=== PATIENT | female | born 1940 | race Caucasian/White ===

== ENCOUNTER 2018-03-17 21:31 | Emergency (ER) | payer OTHER ==
--- NOTE | 2018-03-17 22:35 | EDPHYS ---
Physician Documentation [facility] Name: Mary Polo Age: 77 yrs Sex: Female : 1940 Arrival Date: 03/17/2018 Time: 21:32 Bed 6 Private MD: Austyn Robert ED Physician Sreekanth Diego HPI: 03/17 22:25 This 77 yrs old Female presents to ER via Ambulatory with complaints of Arm ps1 Problem, Insect Bite. 22:25 patient was stung by wasp x1 day prior concerned for swelling and redness. No fever. ps1 Redness and swelling localized to posterior aspect of right upper arm. Pain moderate. . Historical: - Allergies: 21:59 PENICILLINS; aj - PMHx: 21:59 Atrial Fib; Hypertension; aj - Immunization history:: Adult Immunizations up to date. - Social history:: Smoking status: Patient/guardian denies using tobacco. - Ebola Screening: : Patient negative for fever greater than or equal to 101.5 degrees Fahrenheit, and additional compatible Ebola Virus Disease symptoms Patient denies exposure to infectious person Patient denies travel to an Ebola-affected area in the 21 days before illness onset No symptoms or risks identified at this time. ROS: 22:25 Constitutional: Negative for fever, chills, and weight loss, Eyes: Negative for injury, ps1 pain, redness, and discharge, ENT: Negative for injury, pain, and discharge, Cardiovascular: Negative for chest pain, palpitations, and edema, Respiratory: Negative for shortness of breath, cough, wheezing, and pleuritic chest pain, Abdomen/GI: Negative for abdominal pain, nausea, vomiting, diarrhea, and constipation, MS/Extremity: Negative for injury and deformity, Neuro: Negative for headache, weakness, numbness, tingling, and seizure, Psych: Negative for depression, anxiety, suicide ideation, homicidal ideation, and hallucinations. 22:25 Skin: Positive for rash. Exam: 22:25 Constitutional: This is a well developed, well nourished patient who is awake, alert, ps1 and in no acute distress. Head/Face: Normocephalic, atraumatic. Eyes: Pupils equal round and reactive to light, extra-ocular motions intact. Lids and lashes normal. Conjunctiva and sclera are non-icteric and not injected. Chest/axilla: Normal chest wall appearance and motion. Nontender with no deformity. No lesions are appreciated. Cardiovascular: Regular rate and rhythm. No gallops, murmurs, or rubs. Normal PMI, no JVD. No pulse deficits. Respiratory: Lungs have equal breath sounds bilaterally, clear to auscultation and percussion. No rales, rhonchi or wheezes noted. No increased work of breathing, no retractions or nasal flaring. Abdomen/GI: Soft, non-tender, with normal bowel sounds. No distension or tympany. No guarding or rebound. No evidence of tenderness throughout. MS/ Extremity: Pulses equal, no cyanosis. Neurovascular intact. Full, normal range of motion. Neuro: Awake and alert, GCS 15, oriented to person, place, time, and situation. Cranial nerves II-XII grossly intact. Sensory grossly intact. 22:25 Skin: Appearance: normal except for affected area, Insect bite. Patient has sterile pustule with surrounding edema and minimal erythema. . Vital Signs: 21:59 BP 152 / 62; Pulse 71; Resp 16; Temp 97.8; Pulse Ox 93% on R/A; Weight 86.18 kg; Height aj 5 ft. 5 in. (165.10 cm); 22:46 BP 132 / 93; Pulse 72; Resp 18; Pulse Ox 94% on R/A; tl2 21:59 Body Mass Index 31.62 (86.18 kg, 165.10 cm) aj MDM: 22:12 Patient medically screened. ps1 22:25 Data reviewed: vital signs, nurses notes, and as a result, I will discharge patient, ps1 administer antihistamines, benadryl, administer steroids, Decadron. Counseling: I had a detailed discussion with the patient and/or guardian regarding: the historical points, exam findings, and any diagnostic results supporting the discharge/admit diagnosis, to return to the emergency department if symptoms worsen or persist or if there are any questions or concerns that arise at home. Administered Medications: 22:45 Drug: Decadron 10 mg Route: PO; tl2 22:47 Follow up: Response: No adverse reaction; Medication administered at discharge. tl2 22:45 Drug: Benadryl 25 mg Route: PO; tl2 22:48 Follow up: Response: No adverse reaction; Medication administered at discharge. tl2 22:45 Drug: Motrin 400 mg Route: PO; tl2 22:48 Follow up: Response: No adverse reaction; Medication administered at discharge. tl2 Disposition: 03/17/18 22:33 Discharged to Home. Impression: Toxic effect of venom of wasps, accidental (unintentional). - Condition is Stable. - Discharge Instructions: Bee, Wasp, or Hornet Sting, Adult. - Medication Reconciliation Form, Thank You Letter, Antibiotic Education, Prescription Opioid Use form. - Follow up: Austyn Robert MD; When: As needed; Reason: Recheck today's complaints, Continuance of care, Re-evaluation by your physician. Follow up: Emergency Department; When: As needed; Reason: Worsening of condition. - Problem is new. - Symptoms are unchanged. Signatures: Arlyn Jackson RN RN aj Lala Maurice RN RN tl2 Sreekanth Diego MD MD ps1 Corrections: (The following items were deleted from the chart) 22:48 22:33 03/17/2018 22:33 Discharged to Home. Impression: Toxic effect of venom of wasps, tl2 accidental (unintentional). Condition is Stable. Forms are Medication Reconciliation Form, Thank You Letter, Antibiotic Education, Prescription Opioid Use. Follow up: Austyn Robert; When: As needed; Reason: Recheck today's complaints, Continuance of care, Re-evaluation by your physician. Follow up: Emergency Department; When: As needed; Reason: Worsening of condition. Problem is new. Symptoms are unchanged. ps1
--- NOTE | 2018-03-17 22:35 | ER ---
Nurse's Notes [facility] Name: Mary Polo Age: 77 yrs Sex: Female : 1940 Arrival Date: 03/17/2018 Time: 21:32 Bed 6 Private MD: Austyn Robert Diagnosis: Toxic effect of venom of wasps, accidental (unintentional) Presentation: 03/17 21:57 Presenting complaint: Patient states: Redness and inflammation to posterior right upper aj arm for 3 days after wasp sting 3 days ago. Transition of care: patient was not received from another setting of care. Onset of symptoms was March 14, 2018. Risk Assessment: Do you want to hurt yourself or someone else? Patient reports no desire to harm self or others. Initial Sepsis Screen: Does the patient meet any 2 criteria? No. Patient's initial sepsis screen is negative. Does the patient have a suspected source of infection? No. Patient's initial sepsis screen is negative. Care prior to arrival: None. 21:57 Method Of Arrival: Ambulatory 21:57 Acuity: ARNOLD 3 Triage Assessment: 21:59 Bite description: bite sustained to right tricep by a hornet, animal information: vaccination(s) is not applicable. General: Appears in no apparent distress. comfortable, Behavior is calm, cooperative, appropriate for age. Pain: Complains of pain in right tricep. Neuro: Level of Consciousness is awake, alert, obeys commands, Oriented to person, place, time, situation, Appropriate for age. Respiratory: Airway is patent Respiratory effort is even, unlabored, Respiratory pattern is regular, symmetrical. Derm: Skin is intact, is healthy with good turgor, Skin is pink, warm \T\ dry. normal. Historical: - Allergies: 21:59 PENICILLINS; aj - PMHx: 21:59 Atrial Fib; Hypertension; aj - Immunization history:: Adult Immunizations up to date. - Social history:: Smoking status: Patient/guardian denies using tobacco. - Ebola Screening: : Patient negative for fever greater than or equal to 101.5 degrees Fahrenheit, and additional compatible Ebola Virus Disease symptoms Patient denies exposure to infectious person Patient denies travel to an Ebola-affected area in the 21 days before illness onset No symptoms or risks identified at this time. Screenin:14 Abuse screen: Denies threats or abuse. Nutritional screening: No deficits noted. ea Tuberculosis screening: No symptoms or risk factors identified. Fall Risk None identified. Assessment: 22:11 General: Appears in no apparent distress. Behavior is calm, cooperative, appropriate ea for age. Pain: Complains of pain in right tricep, left ankle Pain currently is 5 out of 10 on a pain scale. Quality of pain is described as burning, aching, Pain began 1 day ago. Neuro: Level of Consciousness is awake, alert, obeys commands, Oriented to person, place, time, situation. Cardiovascular: Heart tones S1 S2 present Patient's skin is warm and dry. Respiratory: Airway is patent Respiratory effort is even, unlabored, Respiratory pattern is regular, symmetrical. GI: No signs and/or symptoms were reported involving the gastrointestinal system. : No signs and/or symptoms were reported regarding the genitourinary system. EENT: No signs and/or symptoms were reported regarding the EENT system. Derm: reddened area to right Tricept pt reports she was stung by a hornet, pustule noted to area. 22:46 Reassessment: Patient appears in no apparent distress at this time. Patient and/or tl2 family updated on plan of care and expected duration. Pain level reassessed. Patient is alert, oriented x 3, equal unlabored respirations, skin warm/dry/pink. Pt verbalized understanding of discharge instructions, need for follow up and medication usage. Vital Signs: 21:59 BP 152 / 62; Pulse 71; Resp 16; Temp 97.8; Pulse Ox 93% on R/A; Weight 86.18 kg; Height aj 5 ft. 5 in. (165.10 cm); 22:46 BP 132 / 93; Pulse 72; Resp 18; Pulse Ox 94% on R/A; tl2 21:59 Body Mass Index 31.62 (86.18 kg, 165.10 cm) aj ED Course: 21:32 Patient arrived in ED. am2 21:32 Austyn Robert MD is Private Physician. am2 21:58 Triage completed. aj 21:59 Arm band placed on right wrist. Patient placed in an exam room. aj 22:03 Jessica De La Paz, BROOKE is Primary Nurse. ea 22:12 Sreekanth Diego MD is Attending Physician. ps1 22:14 Patient has correct armband on for positive identification. Bed in low position. Call ea light in reach. 22:33 Austyn Robert MD is Referral Physician. ps1 22:46 No provider procedures requiring assistance completed. Patient did not have IV access tl2 during this emergency room visit. Administered Medications: 22:45 Drug: Decadron 10 mg Route: PO; tl2 22:47 Follow up: Response: No adverse reaction; Medication administered at discharge. tl2 22:45 Drug: Benadryl 25 mg Route: PO; tl2 22:48 Follow up: Response: No adverse reaction; Medication administered at discharge. tl2 22:45 Drug: Motrin 400 mg Route: PO; tl2 22:48 Follow up: Response: No adverse reaction; Medication administered at discharge. tl2 Outcome: 22:33 Discharge ordered by . ps1 22:46 Discharged to home ambulatory, with family. tl2 22:46 Condition: stable 22:46 Discharge instructions given to patient, family, Instructed on discharge instructions, follow up and referral plans. medication usage, Demonstrated understanding of instructions, follow-up care, medications. 22:48 Patient left the ED. tl2 Signatures: Arlyn Jackson RN Lala Guy RN RN tl2 Arlyn Lew am2 Jessica De aL Paz RN RN ea Singer, Phillip, MD MD ps1
[2018-03-17] MEDS ORDERED: IBUPROFEN 400 MG TAB ONE (22:46)
[2018-03-17] MEDS ORDERED: DIPHENHYDRAMINE 25 MG TAB/CAP ONE (22:46)
[2018-03-17] MEDS ORDERED: DEXAMETHASONE 4 MG TAB ONE (22:46)
[2018-03-18 00:47] VITALS: TEMP 97.8
[2018-03-18 00:49] VITALS: BP 132/93; O2SAT 94
== END 2018-03-17 22:48 | disposition home or self-care (01) ==
LOC: ER 21:31
DX: T63.461A Toxic effect of venom of wasps, accidental (unintentional), initial encounter (principal); Y92.9 Unspecified place or not applicable; I10 Essential (primary) hypertension; I48.91 Unspecified atrial fibrillation; Z88.0 Allergy status to penicillin
CPT/HCPCS: 99283

== ENCOUNTER 2019-08-22 22:42 | Emergency (ER) | payer OTHER ==
[2019-08-22] MEDS ORDERED: NA CHLORIDE 0.9% 1,000 ML ONE (23:40)
[2019-08-22] MEDS ORDERED: ONDANSETRON 4 MG/2 ML VIAL ONE (23:40)
[2019-08-22] MEDS ORDERED: MORPHINE 4 MG/ML SYR ONE (23:40)
[2019-08-22 23:48] LABS: Absolute Lymphocytes (CBC) 2.9 K/uL (0.7-4.9); Basophils % 0.8 % (0-1.3); Hematocrit 47.5 % (36.0-45.0); Lymphocytes % 25.7 % (15.3-44.8); MPV 9.5 fL (7.6-11.3); RBC Red Blood Cell Count 5.36 M/uL (3.86-4.86)
[2019-08-23 00:32] LABS: Albumin 3.7 g/dL (3.4-5.0); Bilirubin Direct 0.1 mg/dL (0-0.2); Bilirubin Total 0.8 mg/dL (0.2-1.0); Potassium 3.9 mmol/L (3.5-5.1); Protein, Total 7.4 g/dL (6.4-8.2)
--- NOTE | 2019-08-23 02:33 | EDPHYS ---
Physician Documentation [facility] Name: Mary Polo Age: 78 yrs Sex: Female : 1940 Arrival Date: 08/22/2019 Time: 22:44 Bed 19 Private MD: ED Physician Conner Mays HPI: 08/23 01:45 This 78 yrs old Female presents to ER via Ambulatory with complaints of tw4 Abdominal Pain. 01:45 The patient presents with abdominal pain in the right upper quadrant. Onset: The tw4 symptoms/episode began/occurred today. The symptoms do not radiate. Associated signs and symptoms: none. The patient has not experienced similar symptoms in the past. Historical: - Allergies: 08/22 22:57 PENICILLINS; mg2 - Home Meds: 22:57 Lisinopril Oral [Active]; Metoprolol Tartrate Oral [Active]; mg2 - PMHx: 22:57 Atrial Fib; Hypertension; mg2 - PSHx: 22:57 Hysterectomy; ; D \T\ C; mg2 - Immunization history:: Flu vaccine is up to date. - Coronavirus screen:: The patient has NOT traveled to [place] in the past 14 days. - Social history:: Smoking status: Patient denies any tobacco usage or history of. - Ebola Screening: : No symptoms or risks identified at this time. ROS: 08/23 01:45 Abdomen/GI: Positive for abdominal pain, nausea, constipation, abdominal cramps, tw4 abdominal distension, anorexia, dysphagia, hematemesis, black/tarry stool, rectal pain, rectal bleeding, Negative for nausea and vomiting, nausea, vomiting, and diarrhea. 04:45 Constitutional: Negative for fever, chills, and weight loss, Neck: Negative for injury, tw4 pain, and swelling, Cardiovascular: Negative for chest pain, palpitations, and edema, Respiratory: Negative for shortness of breath, cough, wheezing, and pleuritic chest pain, Back: Negative for injury and pain, MS/Extremity: Negative for injury and deformity, Skin: Negative for injury, rash, and discoloration, Neuro: Negative for headache, weakness, numbness, tingling, and seizure. Exam: 01:45 Constitutional: This is a well developed, well nourished patient who is awake, alert, tw4 and in no acute distress. Head/Face: Normocephalic, atraumatic. Chest/axilla: Normal chest wall appearance and motion. Nontender with no deformity. No lesions are appreciated. Cardiovascular: Regular rate and rhythm with a normal S1 and S2. No gallops, murmurs, or rubs. Normal PMI, no JVD. No pulse deficits. Respiratory: Lungs have equal breath sounds bilaterally, clear to auscultation and percussion. No rales, rhonchi or wheezes noted. No increased work of breathing, no retractions or nasal flaring. Vital Signs: 08/22 22:55 BP 145 / 73; Pulse 86; Resp 18; Temp 97.9; Pulse Ox 96% on R/A; Weight 90.72 kg; Height mg2 5 ft. 5 in. (165.10 cm); Pain 01/18; 08/23 00:00 BP 139 / 76; Pulse 76; Resp 18; Pulse Ox 95% on R/A; wh 01:30 BP 138 / 82; Pulse 86; Resp 18; Pulse Ox 96% on R/A; wh 02:30 BP 149 / 55; Pulse 74; Resp 18; Pulse Ox 95% on R/A; wh 08/22 22:55 Body Mass Index 33.28 (90.72 kg, 165.10 cm) mg2 MDM: 08/22 22:52 Patient medically screened. tw4 08/23 02:11 Differential diagnosis: cholecystitis, Cholelithiasis, pancreatitis. Data reviewed: tw4 vital signs, nurses notes. Data reviewed: lab test result(s), cardiac enzymes, CBC, hepatic panel, radiologic studies, CT scan. Data interpreted: Pulse oximetry: Interpretation: normal. Counseling: I had a detailed discussion with the patient and/or guardian regarding: the historical points, exam findings, and any diagnostic results supporting the discharge/admit diagnosis, lab results, radiology results. 02:29 Medication response: Zofran markedly relieved the patient's nausea. Medication tw4 response: Response to treatment: and as a result, I will discharge patient. Special discussion: Based on the patient's Hx, exam, and Dx evaluation, there is no indication for emergent surgery or inpatient Tx. It is understood by the patient/guardian that if the Sx's persist or worsen they need to return immediately for re-evaluation. I discussed with the patient/guardian in detail that at this point there is no indication for admission to the hospital. It is understood, however, that if the symptoms persist or worsen the patient needs to return immediately for re-evaluation. 08/22 23:17 Order name: Basic Metabolic Panel [facility] 08/22 23:17 Order name: CBC with Diff [facility] 08/22 23:17 Order name: Creatinine for Radiology [facility] 08/22 23:17 Order name: Hepatic Function [facility] 08/22 23:17 Order name: Lipase [facility] 08/22 23:49 Order name: CBC with Automated Diff; Complete Time: 02:33 EDMS 02 02:33 Interpretation: Normal except: WBC 11.4; HCT 47.5; HGB 15.4; RBC 5.36. [facility] 08/22 23:17 Order name: CT Abd/Pelvis - IV Contrast Only [facility] 08/23 00:33 Order name: Basic Metabolic Panel; Complete Time: 02:33 EDMS 02 02:33 Interpretation: Normal except: GFR 39; CRE 1.33; BUN 23; GLUC 158. [facility] 08/23 00:33 Order name: Liver (Hepatic) Function; Complete Time: 02:33 EDMS 02 02:33 Interpretation: Normal except: ALK 150; GLOB 3.7; A/G 1.0. [facility] 08/23 00:33 Order name: Lipase; Complete Time: 02:33 EDMS 02 02:33 Interpretation: Within normal limits: LIP 97. [facility] 08/23 00:33 Order name: Creatinine (Radiology Only); Complete Time: 02:33 EDOK 08/23 02:33 Interpretation: Normal except: CRE 1.37; GFR 37. [facility] 08/22 23:17 Order name: IV Saline Lock; Complete Time: 23:30 [facility] 08/22 23:17 Order name: Labs collected and sent; Complete Time: 23:30 [facility] Administered Medications: 08/22 23:45 Drug: NS 0.9% 1000 ml Route: IV; Rate: 1 bolus; Site: right antecubital; 08/23 02:54 Follow up: Response: No adverse reaction; IV Status: Completed infusion 08/22 23:47 Drug: morphine 4 mg Route: IVP; Site: right antecubital; 02/12 02:54 Follow up: Response: No adverse reaction; Pain is decreased; RASS: Alert and Calm (0) 08/22 23:49 Drug: Zofran 4 mg Route: IVP; Site: right antecubital; 08/23 02:54 Follow up: Response: No adverse reaction; Nausea is decreased 02:50 Drug: ProTONIX 40 mg Route: IVP; Site: right antecubital; 02:54 Follow up: Response: No adverse reaction Disposition: 08/23/19 02:32 Discharged to Home. Impression: Gastritis, unspecified, without bleeding, Nausea. - Condition is Stable. - Discharge Instructions: Gastritis, Adult, Nausea and Vomiting, Adult, [id number]. - Prescriptions for Protonix 40 mg Oral Tablet - take 1 tablet by ORAL route once daily; 30 tablet. Zofran 4 mg Oral Tablet - take 1 tablet by ORAL route every 12 hours As needed; 6 tablet. - Medication Reconciliation Form, Thank You Letter, Antibiotic Education, Prescription Opioid Use form. - Follow up: Private Physician; When: Upon discharge from the Emergency Department; Reason: If symptoms return, Recheck today's complaints, Continuance of care, Re-evaluation by your physician. Follow up: Vidal Limon MD; When: Upon discharge from the Emergency Department; Reason: If symptoms return, Recheck today's complaints, Continuance of care, Re-evaluation by your physician. Follow up: Winston Jacobson MD; When: Upon discharge from the Emergency Department; Reason: If symptoms return, Recheck today's complaints, Continuance of care, Re-evaluation by your physician. Follow up: Billy Dunn MD; When: Upon discharge from the Emergency Department; Reason: If symptoms return, Recheck today's complaints, Continuance of care, Re-evaluation by your physician. Signatures: Dispatcher [employer] EDMS Jamel Wright Conner Mays MD MD tw4 Hugo Gray RN RN mg2 Corrections: (The following items were deleted from the chart) 02:35 02:32 08/23/2019 02:32 Discharged to Home. Impression: Gastritis, unspecified, without tw4 bleeding. Condition is Stable. Forms are Medication Reconciliation Form, Thank You Letter, Antibiotic Education, Prescription Opioid Use. Follow up: Private Physician; When: Upon discharge from the Emergency Department; Reason: If symptoms return, Recheck today's complaints, Continuance of care, Re-evaluation by your physician. tw4 02:56 02:35 08/23/2019 02:32 Discharged to Home. Impression: Gastritis, unspecified, without wh bleeding; Nausea. Condition is Stable. Discharge Instructions: Gastritis, Adult, Nausea and Vomiting, Adult, [id number]. Prescriptions for Protonix 40 mg Oral Tablet - take 1 tablet by ORAL route once daily; 30 tablet, Zofran 4 mg Oral Tablet - take 1 tablet by ORAL route every 12 hours As needed; 6 tablet. and Forms are Medication Reconciliation Form, Thank You Letter, Antibiotic Education, Prescription Opioid Use. Follow up: Private Physician; When: Upon discharge from the Emergency Department; Reason: If symptoms return, Recheck today's complaints, Continuance of care, Re-evaluation by your physician. Follow up: Vidal Limon; When: Upon discharge from the Emergency Department; Reason: If symptoms return, Recheck today's complaints, Continuance of care, Re-evaluation by your physician. Follow up: Winston Jacobson; When: Upon discharge from the Emergency Department; Reason: If symptoms return, Recheck today's complaints, Continuance of care, Re-evaluation by your physician. Follow up: Billy Dunn; When: Upon discharge from the Emergency Department; Reason: If symptoms return, Recheck today's complaints, Continuance of care, Re-evaluation by your physician. tw4
--- NOTE | 2019-08-23 02:33 | ER ---
Nurse's Notes [facility] Name: Mary Polo Age: 78 yrs Sex: Female : 1940 Arrival Date: 08/22/2019 Time: 22:44 Bed 19 Private MD: Diagnosis: Gastritis, unspecified, without bleeding;Nausea Presentation: 08/22 22:53 Presenting complaint: Patient states: i have upper abdominal pain radiating to my back mg2 and vomiting on and off for 3 weeks. Transition of care: patient was not received from another setting of care. Onset of symptoms was August 2019. Risk Assessment: Do you want to hurt yourself or someone else? Patient reports no desire to harm self or others. Initial Sepsis Screen: Does the patient meet any 2 criteria? No. Patient's initial sepsis screen is negative. Does the patient have a suspected source of infection? No. Patient's initial sepsis screen is negative. Care prior to arrival: None. 22:53 Method Of Arrival: Ambulatory mg2 22:53 Acuity: ARNOLD 3 mg2 Historical: - Allergies: 22:57 PENICILLINS; mg2 - Home Meds: 22:57 Lisinopril Oral [Active]; Metoprolol Tartrate Oral [Active]; mg2 - PMHx: 22:57 Atrial Fib; Hypertension; mg2 - PSHx: 22:57 Hysterectomy; ; D \T\ C; mg2 - Immunization history:: Flu vaccine is up to date. - Coronavirus screen:: The patient has NOT traveled to [place] in the past 14 days. - Social history:: Smoking status: Patient denies any tobacco usage or history of. - Ebola Screening: : No symptoms or risks identified at this time. Screenin/12 00:00 Abuse screen: Denies threats or abuse. Denies injuries from another. Nutritional wh screening: No deficits noted. Tuberculosis screening: No symptoms or risk factors identified. Fall Risk None identified. Assessment: 08/22 23:15 General: Appears in no apparent distress. Behavior is calm, cooperative, appropriate wh for age. Pain: Complains of pain in right upper quadrant Pain radiates to back Pain currently is 7 out of 10 on a pain scale. Quality of pain is described as dull, Pain began gradually. Neuro: Level of Consciousness is awake, alert, obeys commands, Oriented to person, place, time, situation, Appropriate for age. Cardiovascular: Heart tones S1 S2. Respiratory: Airway is patent Respiratory effort is even, unlabored, Respiratory pattern is regular, symmetrical, Breath sounds are clear bilaterally. GI: Abdomen is flat, non-distended, Bowel sounds present X 4 quads. Abd is soft and non tender X 4 quads. : No signs and/or symptoms were reported regarding the genitourinary system. EENT: No signs and/or symptoms were reported regarding the EENT system. Derm: Skin is intact, is healthy with good turgor, Skin is pink, warm \T\ dry. normal. Musculoskeletal: Circulation, motion, and sensation intact. 08/23 00:15 Reassessment: Patient appears in no apparent distress at this time. No changes from previously documented assessment. Patient and/or family updated on plan of care and expected duration. Pain level reassessed. Patient is alert, oriented x 3, equal unlabored respirations, skin warm/dry/pink. 01:30 Reassessment: Patient appears in no apparent distress at this time. No changes from previously documented assessment. Patient and/or family updated on plan of care and expected duration. Pain level reassessed. Patient is alert, oriented x 3, equal unlabored respirations, skin warm/dry/pink. 02:55 Reassessment: Patient appears in no apparent distress at this time. No changes from previously documented assessment. Patient and/or family updated on plan of care and expected duration. Pain level reassessed. Patient is alert, oriented x 3, equal unlabored respirations, skin warm/dry/pink. Patient states feeling better. Patient states symptoms have improved. Vital Signs: 08/22 22:55 BP 145 / 73; Pulse 86; Resp 18; Temp 97.9; Pulse Ox 96% on R/A; Weight 90.72 kg; Height mg2 5 ft. 5 in. (165.10 cm); Pain 7/10; 08/23 00:00 BP 139 / 76; Pulse 76; Resp 18; Pulse Ox 95% on R/A; wh 01:30 BP 138 / 82; Pulse 86; Resp 18; Pulse Ox 96% on R/A; wh 02:30 BP 149 / 55; Pulse 74; Resp 18; Pulse Ox 95% on R/A; wh 08/22 22:55 Body Mass Index 33.28 (90.72 kg, 165.10 cm) [facility] ED Course: 08/22 22:44 Patient arrived in ED. jg7 22:48 Jamel Wright is Primary Nurse. 22:52 Conner Mays MD is Attending Physician. tw4 22:55 Triage completed. [facility] 22:57 Arm band placed on. [facility] 23:35 Inserted saline lock: 20 gauge in right antecubital area, using aseptic technique. mt Blood collected. 08/23 00:00 Patient has correct armband on for positive identification. Placed in gown. Bed in low wh position. Call light in reach. Side rails up X 1. Pulse ox on. NIBP on. 00:[address] via wheelchair. 01:02 CT completed. Patient tolerated procedure well. Patient moved back from CT. 02:34 Vidal Limon MD is Referral Physician. tw4 02:34 Winston Jacobson MD is Referral Physician. tw4 02:34 Billy Dunn MD is Referral Physician. tw4 02:55 No provider procedures requiring assistance completed. IV discontinued, intact, bleeding controlled, No redness/swelling at site. Administered Medications: 08/22 23:45 Drug: NS 0.9% 1000 ml Route: IV; Rate: 1 bolus; Site: right antecubital; 08/23 02:54 Follow up: Response: No adverse reaction; IV Status: Completed infusion 08/22 23:47 Drug: morphine 4 mg Route: IVP; Site: right antecubital; 08/23 02:54 Follow up: Response: No adverse reaction; Pain is decreased; RASS: Alert and Calm (0) 08/22 23:49 Drug: Zofran 4 mg Route: IVP; Site: right antecubital; 08/23 02:54 Follow up: Response: No adverse reaction; Nausea is decreased 02:50 Drug: ProTONIX 40 mg Route: IVP; Site: right antecubital; 02:54 Follow up: Response: No adverse reaction Outcome: 02:32 Discharge ordered by . tw4 02:55 Discharged to home ambulatory, with family. 02:55 Condition: stable 02:55 Discharge instructions given to patient, family, Instructed on discharge instructions, follow up and referral plans. medication usage, POC Demonstrated understanding of instructions, follow-up care, medications, POC Prescriptions given X 2. 02:56 Patient left the ED. Signatures: Raheel Aguilera, [facility] Kyle, Conner Michel MD MD tw4 Hugo Gray RN RN mg2 Agustín, Aleksandra [email or web address]
[2019-08-23] MEDS ORDERED: PANTOPRAZOLE 40 MG INJ ONE (02:50)
--- NOTE | 2019-08-23 10:35 | RAD REPORT ---
EXAM DESCRIPTION: CT - Abdomen Pelvis W Contrast - 08/23/2019 5:19 am CLINICAL HISTORY: 78 years Female ABD PAIN COMPARISON: None TECHNIQUE: Images were obtained in axial, sagittal, and coronal planes. Intravenous contrast was adm inistered. Arterial and venous phase imaging was performed. This exam was performed according to our departmental dose-optimization program which includes use of Automated Exposure Control, adjustment of the mA and/or kV according to patient size and/or use of i terative reconstruction technique. FINDINGS: Decreased attenuation involving liver consistent with fatty change. Unremarkable spleen, g allbladder and adrenal glands bilaterally. Atrophic changes involving pancreas. No obstructing renal calcifications bilaterally. No hydronephrosis bilaterally. Unremarkable bladder. No abnormality abdominal aorta or portal vein. No adenopathy or abnormal fluid collections seen. Appendix not well identified however no secondary signs for appendicitis. No bowel obstruction, perfo ration, or inflammation. Small left inguinal hernia which contains only mesenteric fat. Airspace attenuation right middle lobe and lingula consistent with infiltrate versus atelectatic [place]. No acute osseous abnormality. IMPRESSION: No acute intra-abdominal abnormality. Electronically signed by: Alma Keenan MD 08/23/2019 1:14 AM S[employer] ARTICLES Due to temporary technical issues with the PACS/Fluency reporting system, reports are being signed by the in house radiologist as a courtesy to ensure prompt reporting. The interpreting radiologist is f ully responsible for the content of the report.
[2019-08-24 15:45] VITALS: TEMP 97.9
[2019-08-24 15:49] VITALS: BP 149/55; O2SAT 95
== END 2019-08-23 02:56 | disposition home or self-care (01) ==
LOC: ER 22:42
DX: K29.70 Gastritis, unspecified, without bleeding (principal); R11.0 Nausea; I10 Essential (primary) hypertension; I48.91 Unspecified atrial fibrillation; Z88.0 Allergy status to penicillin
CPT/HCPCS: 96361; 85025; 80048; 36415; 80076; 83690; 74177; 96375; 96374; 99284; Q9967; C9113; J7030; J2405

== ENCOUNTER 2019-08-30 09:51 | Emergency (ER) | payer OTHER ==
--- NOTE | 2019-08-30 10:51 | RAD REPORT ---
EXAM DESCRIPTION: Porfirio Single View08/30/2019 10:41 am CLINICAL HISTORY: cough COMPARISON: none FINDINGS: The left base is hazy Right lung appears clear . The heart is probably upper limits normal size IMPRESSION: Left base is hazy which may be secondary to a mild atelectasis, infiltrate or small pleu ral effusion
[2019-08-30 11:04] LABS: Absolute Lymphocytes (CBC) 0.7 K/uL (0.7-4.9); Basophils % 0.6 % (0-1.3); Hematocrit 47.3 % (36.0-45.0); Lymphocytes % 9.3 % (15.3-44.8); Protime INR 1.15
[2019-08-30] MEDS ORDERED: OSELTAMIVIR 75 MG CAP ONE (11:12)
[2019-08-30] MEDS ORDERED: METHYLPREDNISOLONE 125 MG INJ ONE (11:12)
[2019-08-30 11:19] LABS: ALT/SGPT 53 U/L (12-78); AST/SGOT 49 U/L (15-37); Albumin 3.4 g/dL (3.4-5.0); Alkaline Phosphatase 113 U/L (45-117); BUN Blood Urea Nitrogen 30 mg/dL (7-18); Bicarbonate 25 mmol/L (21-32); Bilirubin Direct 0.5 mg/dL (0-0.2); Bilirubin Total 1.6 mg/dL (0.2-1.0); Glucose Level 133 mg/dL (74-106); NT PRO-BNP 425 pg/mL (<450); Potassium 3.6 mmol/L (3.5-5.1); Protein, Total 7.4 g/dL (6.4-8.2); Sodium Level 138 mmol/L (136-145); Troponin (Emerg Dept Use Only) < 0.02 ng/mL (0.0-0.045)
--- NOTE | 2019-08-30 11:49 | EDPHYS ---
Physician Documentation [facility] Name: Mary Polo Age: 79 yrs Sex: Female : 1940 Arrival Date: 08/30/2019 Time: 09:53 Bed 4 Private MD: Austyn Robert ED Physician Jairo Palomo HPI: 08/30 10:25 This 79 yrs old Female presents to ER via Wheelchair with complaints of Sore jr8 Throat. 10:25 The patient presents with sore throat. The patient describes throat pain as constant, jr8 raw. Onset: The symptoms/episode began/occurred acutely, 2 day(s) ago. Severity of symptoms: At their worst the symptoms were moderate, in the emergency department the symptoms are unchanged. Modifying factors: The symptoms are alleviated by nothing. Associated signs and symptoms: Pertinent positives: cough, flu-like symptoms. The patient has not experienced similar symptoms in the past. The patient has not recently seen a physician. Historical: - Allergies: 10:05 PENICILLINS; rb1 - Home Meds: 10:05 lisinopril Oral [Active]; Metoprolol Tartrate Oral [Active]; rb1 - PMHx: 10:05 Atrial Fib; Hypertension; rb1 - PSHx: 10:05 Hysterectomy; ; D \T\ C; Lump removed from breast; rb1 - Immunization history:: Adult Immunizations up to date. - Coronavirus screen:: The patient has NOT traveled to [place] in the past 14 days. The patient has NOT had contact with known/suspected case of Coronavirus?. - Social history:: Smoking status: Patient/guardian denies using. - Ebola Screening: : Patient denies travel to an Ebola-affected area in the 21 days before illness onset. ROS: 10:25 Eyes: Negative for injury, pain, redness, and discharge, Neck: Negative for injury, jr8 pain, and swelling, Cardiovascular: Negative for chest pain, palpitations, and edema, Back: Negative for injury and pain, MS/Extremity: Negative for injury and deformity, Skin: Negative for injury, rash, and discoloration, Neuro: Negative for headache, weakness, numbness, tingling, and seizure. 10:25 Constitutional: Positive for body aches, chills. 10:25 ENT: Positive for rhinorrhea, sore throat. 10:25 Respiratory: Positive for cough, Negative for dyspnea on exertion, shortness of breath, sputum production, wheezing. 10:25 Abdomen/GI: Positive for nausea and vomiting, Negative for abdominal pain, diarrhea, constipation, abdominal cramps, abdominal distension. Exam: 10:25 Eyes: Pupils equal round and reactive to light, extra-ocular motions intact. Lids and jr8 lashes normal. Conjunctiva and sclera are non-icteric and not injected. Cornea within normal limits. Periorbital areas with no swelling, redness, or edema. ENT: Nares patent. No nasal discharge, no septal abnormalities noted. Tympanic membranes are normal and external auditory canals are clear. Oropharynx with redness. Mild tonsilar swelling and erythema without exudate. No swelling, or masses, exudates, or evidence of obstruction, uvula midline. Mucous membranes moist. Neck: Trachea midline, no thyromegaly or masses palpated, and no cervical lymphadenopathy. Supple, full range of motion without nuchal rigidity, or vertebral point tenderness. No Meningismus. Cardiovascular: Regular rate and rhythm with a normal S1 and S2. No gallops, murmurs, or rubs. Normal PMI, no JVD. No pulse deficits. Respiratory: Lungs have equal breath sounds bilaterally, clear to auscultation and percussion. No rales, rhonchi or wheezes noted. No increased work of breathing, no retractions or nasal flaring. Abdomen/GI: Soft, non-tender, with normal bowel sounds. No distension or tympany. No guarding or rebound. No evidence of tenderness throughout. Back: No spinal tenderness. No costovertebral tenderness. Full range of motion. 11:43 ECG was reviewed by the Attending Physician. [facility] Vital Signs: 10:05 BP 118 / 91; Pulse 101; Resp 19; Temp 98.6(O); Pulse Ox 92% on R/A; Weight 90.72 kg rb1 (R); Height 5 ft. 5 in. (165.10 cm) (R); Pain 9/10; 10:20 BP 118 / 91; Pulse 102; Resp 18; Pulse Ox 87% on R/A; rb1 11:00 BP 120 / 73; Pulse 88; Resp 17; Pulse Ox 92% on 3 lpm NC; rb1 12:00 BP 118 / 83; Pulse 86; Resp 17; Pulse Ox 92% on R/A; rb1 10:05 Body Mass Index 33.28 (90.72 kg, 165.10 cm) rb1 10:05 Pt. reports that her O2 sat runs low rb1 10:20 Put the pt. on 3 L NC. Provider notified of low O2 saturation. rb1 MDM: 10:06 Patient medically screened. jr8 11:15 Differential diagnosis: bronchitis, group A strep tonsillitis, influenza, laryngitis, jr8 mononucleosis, pharyngitis, upper respiratory infection, viral syndrome pneumonia, acute pulmonary edema, [place]. Data reviewed: vital signs, nurses notes, lab test result(s), Flu: positive EKG, radiologic studies, plain films. Data interpreted: Pulse oximetry: on room air is 88 %. Interpretation: hypoxia. Counseling: I had a detailed discussion with the patient and/or guardian regarding: the historical points, exam findings, and any diagnostic results supporting the discharge/admit diagnosis, lab results, radiology results. 11:43 ED course: Patient off oxygen is fluctuating between 88 and 93% SPO2. Patient denies jr8 any shortness of breath or dyspnea on exertion. Feels better after treatment. Is wanting to try outpatient therapy at this time. Patient is in no respiratory distress at this time. Will put on Abx, Tamiflu, and steroids at home. Want her to see PCP in next couple of days which she has appointment for. Knows to come back if she were to worsen at any point in time. 08/30 10:12 Order name: Influenza Screen (a \T\ B) 08/30 10:12 Order name: Strep 08/30 10:32 Order name: Basic Metabolic Panel; Complete Time: 11:08/30 10:32 Order name: CBC with Diff; Complete Time: 11:08/30 10:32 Order name: LFT's; Complete Time: 11:08/30 10:32 Order name: Magnesium; Complete Time: 11:08/30 10:12 Order name: XRAY CXR (1 view); Complete Time: 12:29 08/30 10:32 Order name: NT PRO-BNP; Complete Time: 11:08/30 10:32 Order name: PT-INR; Complete Time: 11:08/30 10:32 Order name: Troponin (emerg Dept Use Only); Complete Time: 11:23 [facility] 08/30 10:37 Order name: Group A Streptococcus Rapid Sc [facility] 08/30 10:38 Order name: Influenza Screen (A [facility] 08/30 10:55 Order name: Throat Culture [facility] 08/30 10:32 Order name: EKG; Complete Time: 10:33 [facility] 08/30 10:32 Order name: Cardiac monitoring; Complete Time: 11:21 [facility] 08/30 10:32 Order name: EKG - Nurse/Tech; Complete Time: 11:21 [facility] 08/30 10:32 Order name: IV Saline Lock; Complete Time: 11: [facility] 08/30 10:32 Order name: Labs collected and sent; Complete Time: 11: [facility] 08/30 10:32 Order name: O2 Per Protocol; Complete Time: 11: [facility] 08/30 10:32 Order name: O2 Sat Monitoring; Complete Time: 11: jr8 EC:43 Rate is 101 beats/min. Rhythm is regular, Sinus tachycardia. Left axis deviation noted. jr8 AK interval is normal at 136 msec. QRS interval is normal at 80 msec. QT interval is normal at 440 msec. No Q waves. T waves are Normal. No ST changes noted. Clinical impression: Sinus tachycardia and No evidence of ischemia. Interpreted by me. Reviewed by me. Administered Medications: 11:18 Drug: SOLU-Medrol 125 mg Route: IVP; Site: right wrist; rb1 11:33 Follow up: Response: No adverse reaction rb1 11:20 Drug: Tamiflu 75 mg Route: PO; rb1 11:54 Follow up: Response: No adverse reaction rb1 11:43 CANCELLED (Physician Discretion): NS 0.9% 1000 ml IV at 1000 ml once jr8 12:17 Drug: Zofran 4 mg Route: IVP; Site: right wrist; rb1 12:25 Follow up: Response: No adverse reaction rb1 Disposition: 14:27 Co-signature as Attending Physician, Jairo Palomo MD. rn Disposition: 08/30/19 11:48 Discharged to Home. Impression: Influenza due to identified novel influenza A virus, Pleural condition, unspecified. - Condition is Stable. - Discharge Instructions: Influenza, Adult. - Prescriptions for Prednisone 20 mg Oral Tablet - take 1 tablet by ORAL route once daily for 5 days; 5 tablet. Tamiflu 75 mg Oral Capsule - take 1 capsule by ORAL route every 12 hours for 5 days; 10 capsule. Zofran 4 mg Oral Tablet - take 1 tablet by ORAL route every 12 hours As needed; 20 tablet. Zithromax Z- Noe 250 mg Oral Tablet - take 1 tablet by ORAL route as directed for 5 days Day 1 - take two (2) tablets one time. Day 2, 3, 4 , 5 take one (1) tablet once daily.; 6 tablet. Albuterol Sulfate 90 mcg/actuation - inhale 1-2 puff by INHALATION route every 4-6 hours; 1 Inhaler. - Medication Reconciliation Form, Thank You Letter, Antibiotic Education, Prescription Opioid Use form. - Follow up: Austyn Robert MD; When: 5 - 6 days; Reason: Recheck today's complaints, Continuance of care, Re-evaluation by your physician. - Problem is new. - Symptoms have improved. Signatures: Dispatcher [employer] EDMS Jairo Palomo MD MD rn Star Toro PA PA jr8 Sonam Sylvester, RN RN rb1 Corrections: (The following items were deleted from the chart) 11:43 11:24 NS 0.9% 1000 ml IV at 1000 ml once ordered. jr8 jr8 12:31 11:48 08/30/2019 11:48 Discharged to Home. Impression: Influenza due to identified rb1 novel influenza A virus; Pleural condition, unspecified. Condition is Stable. Forms are Medication Reconciliation Form, Thank You Letter, Antibiotic Education, Prescription Opioid Use. Follow up: Austyn Robert; When: 5 - 6 days; Reason: Recheck today's complaints, Continuance of care, Re-evaluation by your physician. Problem is new. Symptoms have improved. jr8
--- NOTE | 2019-08-30 11:49 | ER ---
Nurse's Notes [facility] Name: Mary Polo Age: 79 yrs Sex: Female : 1940 Arrival Date: 08/30/2019 Time: 09:53 Bed 4 Private MD: Austyn Robert Diagnosis: Influenza due to identified novel influenza A virus;Pleural condition, unspecified Presentation: 08/30 10:05 Presenting complaint: Patient states: Thinks she has strep throat, reports sore throat, rb1 nausea/vomiting that started this morning, and fever. Transition of care: patient was not received from another setting of care. Onset of symptoms was August 29, 2019. Risk Assessment: Do you want to hurt yourself or someone else? Patient reports no desire to harm self or others. Initial Sepsis Screen: Does the patient meet any 2 criteria? No. Patient's initial sepsis screen is negative. Does the patient have a suspected source of infection? No. Patient's initial sepsis screen is negative. Care prior to arrival: None. 10:05 Method Of Arrival: Wheelchair rb1 10:05 Acuity: ARNOLD 3 rb1 Triage Assessment: 10:05 General: Appears in no apparent distress. comfortable, Behavior is calm, cooperative, rb1 Pt. is sweating.. General: Reports fever for this morning. Pain: Complains of pain in sore throat Pain currently is 9 out of 10 on a pain scale. Pain began last night Aggravated by coughing. EENT: Throat is reddened Reports pain in throat. Neuro: Level of Consciousness is awake, alert, obeys commands, Oriented to person, place, time, situation. Cardiovascular: Capillary refill < 3 seconds is brisk in bilateral fingers. Respiratory: Reports cough that is Tries not to cough because it is painful pain with cough Airway is patent Respiratory effort is even, unlabored, Respiratory pattern is regular, symmetrical. GI: Reports nausea, vomiting. : No signs and/or symptoms were reported regarding the genitourinary system. Derm: Skin is clammy, Skin is pink, Skin temperature is warm. 10:05 Pain: Complains of pain in bodyaches. rb1 10:28 Respiratory: Denies shortness of breath. rb1 Historical: - Allergies: 10:05 PENICILLINS; rb1 - Home Meds: 10:05 lisinopril Oral [Active]; Metoprolol Tartrate Oral [Active]; rb1 - PMHx: 10:05 Atrial Fib; Hypertension; rb1 - PSHx: 10:05 Hysterectomy; ; D \T\ C; Lump removed from breast; rb1 - Immunization history:: Adult Immunizations up to date. - Coronavirus screen:: The patient has NOT traveled to [place] in the past 14 days. The patient has NOT had contact with known/suspected case of Coronavirus?. - Social history:: Smoking status: Patient/guardian denies using. - Ebola Screening: : Patient denies travel to an Ebola-affected area in the 21 days before illness onset. Screenin:05 Abuse screen: Denies threats or abuse. Nutritional screening: No deficits noted. rb1 Tuberculosis screening: No symptoms or risk factors identified. Fall Risk None identified. Assessment: 10:05 General: See triage assessment. rb1 11:00 Reassessment: Patient appears in no apparent distress at this time. No changes from rb1 previously documented assessment. 12:00 Reassessment: Patient appears in no apparent distress at this time. Patient and/or rb1 family updated on plan of care and expected duration. Pain level reassessed. Patient is alert, oriented x 3, equal unlabored respirations, skin warm/dry/pink. 12:10 Reassessment: Pt. is actively dry heaving. Provider notified, received verbal order for rb1 Zofran 4 mg IVP x once. Vital Signs: 10:05 BP 118 / 91; Pulse 101; Resp 19; Temp 98.6(O); Pulse Ox 92% on R/A; Weight 90.72 kg rb1 (R); Height 5 ft. 5 in. (165.10 cm) (R); Pain 9/10; 10:20 BP 118 / 91; Pulse 102; Resp 18; Pulse Ox 87% on R/A; rb1 11:00 BP 120 / 73; Pulse 88; Resp 17; Pulse Ox 92% on 3 lpm NC; rb1 12:00 BP 118 / 83; Pulse 86; Resp 17; Pulse Ox 92% on R/A; rb1 10:05 Body Mass Index 33.28 (90.72 kg, 165.10 cm) rb1 10:05 Pt. reports that her O2 sat runs low rb1 10:20 Put the pt. on 3 L NC. Provider notified of low O2 saturation. rb1 ED Course: 09:53 Patient arrived in ED. mr 09:53 Austyn Robert MD is Private Physician. mr 10:05 Arm band placed on right wrist. rb1 10:05 Patient has correct armband on for positive identification. Bed in low position. Call rb1 light in reach. Side rails up X 1. Pulse ox on. NIBP on. Warm blanket given. 10:06 Star Toro PA is PHCP. jr8 10:06 Jairo Palomo MD is Attending Physician. jr8 10:07 Sonam Sylvester, BROOKE is Primary Nurse. rb1 10:16 Triage completed. rb1 10:31 Strep Sent. dh3 10:31 Influenza Screen (a \T\ B) Sent. dh3 10:52 Initial lab(s) drawn, by id, sent to lab. Inserted saline lock: 20 gauge in right dh3 wrist, using aseptic technique. Blood collected. 10:53 XRAY CXR (1 view) In Process Unspecified. EDMS 11:27 EKG done, by tool grinding technician. reviewed by Star EUCEDA. at1 11:48 Austyn Robert MD is Referral Physician. jr8 12:25 No provider procedures requiring assistance completed. IV discontinued, intact, rb1 bleeding controlled, No redness/swelling at site. Pressure dressing applied. Administered Medications: 11:18 Drug: SOLU-Medrol 125 mg Route: IVP; Site: right wrist; rb1 11:33 Follow up: Response: No adverse reaction rb1 11:20 Drug: Tamiflu 75 mg Route: PO; rb1 11:54 Follow up: Response: No adverse reaction rb1 11:43 CANCELLED (Physician Discretion): NS 0.9% 1000 ml IV at 1000 ml once jr8 12:17 Drug: Zofran 4 mg Route: IVP; Site: right wrist; rb1 12:25 Follow up: Response: No adverse reaction rb1 Outcome: 11:48 Discharge ordered by . jr8 12:25 Patient left the ED. rb1 12:25 Discharged to home via wheelchair, with family. rb1 12:25 Condition: stable 12:25 Discharge instructions given to patient, Instructed on discharge instructions, follow up and referral plans. medication usage, Demonstrated understanding of instructions, follow-up care, medications, Prescriptions given X x 5 Signatures: Dispatcher [employer] EDMS Evelyn Rasheed mr RoszaStar noel PA PA jr8 Arlyn Harris, scales inspector EKG Tat1 Sonam Sylvester, RN RN rb1 Sasha Vargas 3 Corrections: (The following items were deleted from the chart) 12:33 12:31 Patient left the ED. rb1 rb1
[2019-08-30] MEDS ORDERED: ONDANSETRON 4 MG/2 ML VIAL ONE (12:19)
--- NOTE | 2019-08-30 12:30 | EKG ---
Test Date: 2019-08-30 Test Time: 11:13:53 Garage Laborer: MARBELLA MEASUREMENT RESULTS: Intervals: Rate: 101 UT: 136 QRSD: 80 QT: 340 QTc: 440 [place]: P: 11 UT: 136 QRS: -64 T: 31 INTERPRETIVE STATEMENTS: Sinus tachycardia with frequent premature ventricular complexes Left anterior fascicular block Cannot rule out Anterior infarct, age undetermined Abnormal ECG Compared to ECG 06/11/2005 05:44:00 Ventricular premature complex(es) now present Left anterior fascicular block now present Myocardial infarct finding now present Sinus bradycardia no longer present Electronically Signed On 08-30-19 12:29:30 [employer]IATION ELECTRICIAN by Héctor Tian
[2019-08-30 12:49] VITALS: BP 118/91; TEMP 98.6; O2SAT 92
== END 2019-08-30 12:31 | disposition home or self-care (01) ==
LOC: ER 09:51
DX: J09.X2 Influenza due to identified novel influenza A virus with other respiratory manifestations (principal)
CPT/HCPCS: 93005; 87070; 85025; 80048; 36415; 83735; 85610; 80076; 87081; 84484; 83880; 87804 ×2; 71045; 96375; 96374; 99284; J2930; J2405

== ENCOUNTER 2023-01-06 13:25 | Emergency (ER) | payer OTHER ==
--- NOTE | 2023-01-06 15:12 | RAD REPORT ---
EXAM DESCRIPTION: RAD - Ankle Left 3 View - 01/06/2023 2:19 pm CLINICAL HISTORY: PAIN COMPARISON: No comparisons FINDINGS: Soft tissue swelling is seen along the lateral aspect of the ankle. There is an oblique fr acture of the distal fibula. Small calcaneal spurs are present.
--- NOTE | 2023-01-06 15:22 | RAD REPORT ---
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 Small suprapatell ar joint effusion. Thin lucency in the inferior patella could represent a patella fracture if the pat ient is clinically point tender in this location.
--- NOTE | 2023-01-06 15:29 | RAD REPORT ---
EXAM DESCRIPTION: RAD - Foot Left 3 View - 01/06/2023 2:19 pm CLINICAL HISTORY: PAIN COMPARISON: No comparisons FINDINGS: Moderate soft tissue swelling is is present. No acute fracture or dislocation.
--- NOTE | 2023-01-06 15:54 | ER ---
Nurse's Notes [facility] Name: Mary Polo Age: 82 yrs Sex: Female : 1940 Arrival Date: 01/06/2023 Time: 13:25 Bed 10 Private MD: Austyn Robert Diagnosis: Nondisplaced fracture of lateral malleolus of left fibula;Contusion of ankle Presentation: 01/06 13:35 Chief complaint: Patient states: twisted ankle on - bruising and swelling to ld1 left ankle. Pt reports been walking on foot "I don't think its broken.". Coronavirus screen: At this time, the client does not indicate any symptoms associated with coronavirus-19. Ebola Screen: No symptoms or risks identified at this time. Initial Sepsis Screen: Does the patient meet any 2 criteria? No. Patient's initial sepsis screen is negative. Does the patient have a suspected source of infection? No. Patient's initial sepsis screen is negative. Risk Assessment: Do you want to hurt yourself or someone else? Patient reports no desire to harm self or others. Onset of symptoms was January 06, 2023. 13:35 Method Of Arrival: Wheelchair ld1 13:35 Acuity: ARNOLD 4 ld1 Triage Assessment: 13:37 General: Appears in no apparent distress. comfortable, Behavior is calm, cooperative, ld1 appropriate for age. Pain: Complains of pain in left foot Pain does not radiate. Pain currently is .6 out of 10 on a pain scale. Quality of pain is described as throbbing. EENT: No signs and/or symptoms were reported regarding the EENT system. Neuro: Level of Consciousness is awake, alert, obeys commands, Oriented to person, place, time, situation. Cardiovascular: Capillary refill < 3 seconds Patient's skin is warm and dry. Respiratory: Airway is patent Respiratory effort is even, unlabored. GI: Abdomen is round non-distended. : No signs and/or symptoms were reported regarding the genitourinary system. Derm: No signs and/or symptoms reported regarding the dermatologic system. Musculoskeletal: Reports pain in left foot. Historical: - Allergies: 13:37 PENICILLINS; ld1 - Home Meds: 13:37 Metoprolol Tartrate Oral [Active]; lisinopril Oral [Active]; aspirin 81 mg Oral capsule ld1 once [Active]; - PMHx: 13:37 Atrial Fib; Hypertension; ld1 - Immunization history:: Adult Immunizations up to date, Client reports receiving the 2nd dose of the Covid vaccine. - Social history:: Smoking status: Patient denies any tobacco usage or history of. Patient/guardian denies using alcohol. Screenin:15 [facility] ED Fall Risk Assessment (Adult) History of falling in the last 3 months, iw including since admission Yes- single mechanical fall (1 pt) Score/Fall Risk Level 0 - 2 = Low Risk. Abuse screen: Denies threats or abuse. Nutritional screening: No deficits noted. Tuberculosis screening: No symptoms or risk factors identified. Assessment: 15:30 General: Appears in no apparent distress. Behavior is calm, cooperative. Pain: iw Complains of pain in lateral aspect of left foot and left lateral ankle and left foot. Neuro: Level of Consciousness is awake, alert, obeys commands. Cardiovascular: Patient's skin is warm and dry. Respiratory: Respiratory effort is even, unlabored, Respiratory pattern is regular. Derm: Skin is intact, is healthy with good turgor. Musculoskeletal: Range of motion: limited in left lateral ankle and left foot. Vital Signs: 13:35 BP 160 / 74; Pulse 76; Resp 18; Temp 98.3(O); Pulse Ox 98% on R/A; Weight 99.79 kg; ld1 Height 5 ft. 5 in. ; Pain 6/10; 13:35 Body Mass Index 36.61 (99.79 kg, 165.1 cm) ld1 13:35 Pain Scale: Adult ld1 ED Course: 13:27 Patient arrived in ED. am2 13:27 Austyn Robert MD is Private Physician. am2 13:32 Clyde Krishna MD is Attending Physician. kdr 13:37 Triage completed. ld1 13:37 Arm band placed on right wrist. ld1 14:00 oRsa Cannon, BROOKE is Primary Nurse. iw 14:21 Ankle Left 3 View XRAY In Process Unspecified. EDMS 14:21 Knee Left 3 View XRAY In Process Unspecified. EDMS 14:21 Foot Left 3 View XRAY In Process Unspecified. EDMS 15:30 Patient has correct armband on for positive identification. iw 15:53 Austyn Robert MD is Referral Physician. kdr 16:02 No provider procedures requiring assistance completed. Patient did not have IV access iw during this emergency room visit. Administered Medications: No medications were administered Medication: 16:00 VIS not applicable for this client. iw Outcome: 15:54 Discharge ordered by . kdr 16:02 Discharged to home ambulatory, with family. iw 16:02 Condition: good 16:02 Discharge instructions given to patient, family, Instructed on Demonstrated understanding of instructions, follow-up care, medications, Prescriptions given X 1. 16:03 Patient left the ED. iw Signatures: Dispatcher [employer] EDMS Clyde Krishna MD MD kdr Rosa Cannon RN RN iw Arlyn Lew am2 Jeny Cottrell RN RN ld1
--- NOTE | 2023-01-06 15:54 | EDPHYS ---
Physician Documentation [facility] Name: Mary Polo Age: 82 yrs Sex: Female : 1940 Arrival Date: 01/06/2023 Time: 13:25 Bed 10 Private MD: Austyn Robert ED Physician Clyde Krishna HPI: 01/06 13:47 This 82 yrs old Female presents to ER via Wheelchair with complaints of Ankle Injury. kdr 13:47 The patient presents with decreased range of motion, an injury, pain, that is acute, kdr swelling. The complaints affect the left ankle. Onset: The symptoms/episode began/occurred suddenly, Last she was walking along a ditch when she twisted her ankle and fell. She caught herself with her hands and knees. Other than her left ankle, she does not have any significant injury or concern elsewhere.. Context: The problem was sustained at home, resulted from the patient falling, while walking. Associated signs and symptoms: The patient has no apparent associated signs or symptoms. Modifying factors: The symptoms are alleviated by nothing, the symptoms are aggravated by weight bearing, movement, wearing shoes. Severity of symptoms: At their worst the symptoms were mild, in the emergency department the symptoms are unchanged. The patient has not experienced similar symptoms in the past. The patient has not recently seen a physician. Historical: - Allergies: 13:37 PENICILLINS; ld1 - Home Meds: 13:37 Metoprolol Tartrate Oral [Active]; lisinopril Oral [Active]; aspirin 81 mg Oral capsule ld1 once [Active]; - PMHx: 13:37 Atrial Fib; Hypertension; ld1 - Immunization history:: Adult Immunizations up to date, Client reports receiving the 2nd dose of the Covid vaccine. - Social history:: Smoking status: Patient denies any tobacco usage or history of. Patient/guardian denies using alcohol. ROS: 13:49 Constitutional: Negative for fever, chills, and weight loss. kdr 13:49 MS/extremity: Positive for injury or acute deformity, decreased range of motion, ecchymosis, pain, swelling, tenderness, of the left lateral ankle and lateral aspect of left foot. Exam: 13:49 Constitutional: This is a well developed, well nourished patient who is awake, alert, kdr and in no acute distress. 13:49 Musculoskeletal/extremity: ROM: limited active range of motion, limited passive range of motion, limited active range of motion due to pain, limited passive range of motion due to pain, Circulation is intact in all extremities. Sensation intact. Vital Signs: 13:35 BP 160 / 74; Pulse 76; Resp 18; Temp 98.3(O); Pulse Ox 98% on R/A; Weight 99.79 kg; ld1 Height 5 ft. 5 in. ; Pain 6/10; 13:35 Body Mass Index 36.61 (99.79 kg, 165.1 cm) ld1 13:35 Pain Scale: Adult ld1 MDM: 15:54 Patient medically screened. kdr 16:15 Data reviewed: vital signs, nurses notes, radiologic studies. kdr 01/06 13:44 Order name: Ankle Left 3 View XRAY; Complete Time: 15:19 kdr 01/06 13:44 Order name: Knee Left 3 View XRAY; Complete Time: 15:44 kdr 01/06 13:49 Order name: Foot Left 3 View XRAY; Complete Time: 15:44 kdr Administered Medications: No medications were administered Disposition Summary: 01/06/23 15:54 Discharge Ordered Location: Home kdr Problem: new kdr Symptoms: have improved kdr Condition: Stable kdr Diagnosis - Nondisplaced fracture of lateral malleolus of left fibula kdr - Contusion of ankle kdr Followup: kdr - With: Austyn Robert MD - When: 2 - 3 days - Reason: If symptoms return, Further diagnostic work-up, Recheck today's complaints, Continuance of care, Re-evaluation by your physician Discharge Instructions: - Discharge Summary Sheet kdr - Nondisplaced Fibular Ankle Fracture Treated With Immobilization kdr - Tibial and Fibular Fractures kdr Forms: - Medication Reconciliation Form kdr - Thank You Letter kdr - Prescription Opioid Use kdr - [email or web address] kdr Prescriptions: - Tramadol 50 mg Oral Tablet - take 1 tablet by ORAL route every 8 hours as needed; 12 tablet; Refills: 0, kdr Product Selection Permitted Signatures: Dispatcher [employer] Clyde Elaine MD MD kdr Jeny Cottrell RN RN ld1
[2023-01-06 16:37] VITALS: BP 160/74; TEMP 98.3; O2SAT 98
== END 2023-01-06 16:03 | disposition home or self-care (01) ==
LOC: ER 13:25
DX: S82.65XA Nondisplaced fracture of lateral malleolus of left fibula, initial encounter for closed fracture (principal); I10 Essential (primary) hypertension; I48.91 Unspecified atrial fibrillation; Z88.0 Allergy status to penicillin; Z79.82 Long term (current) use of aspirin
CPT/HCPCS: 99283

== ENCOUNTER 2024-08-15 00:25 | Emergency (ER) | payer OTHER ==
--- NOTE | 2024-08-15 00:46 | ER ---
Nurse's Notes [facility] Name: Mary Polo Age: 83 yrs Sex: Female : 1940 Arrival Date: 08/15/2024 Time: 00:25 Bed IW1 Private MD: Diagnosis: Radiculopathy, cervical region Presentation: 08/15 00:32 Chief complaint: Patient states: left shoulder pain since last couple days, X-ray done ha1 today by primary care. 00:32 Coronavirus screen: Client denies travel out of the [place] in the last 14 days. Ebola ha1 Screen: No symptoms or risks identified at this time. Initial Sepsis Screen: Does the patient meet any 2 criteria? No. Patient's initial sepsis screen is negative. Does the patient have a suspected source of infection? No. Patient's initial sepsis screen is negative. Risk Assessment: Do you want to hurt yourself or someone else? Patient reports no desire to harm self or others. Onset of symptoms was August 15, 2024. 00:32 Method Of Arrival: Wheelchair ha1 00:32 Acuity: ARNOLD 5 ha1 Triage Assessment: 00:40 General: Appears uncomfortable, Behavior is cooperative. Pain: Complains of pain in ha1 left shoulder Pain currently is 10 out of 10 on a pain scale. Quality of pain is described as throbbing, Alleviated by medications, Aggravated by increased activity. Neuro: Level of Consciousness is awake, alert, obeys commands, Oriented to person, place, time, situation. Cardiovascular: Capillary refill < 3 seconds Patient's skin is warm and dry. Respiratory: Airway is patent Respiratory effort is even, unlabored, Respiratory pattern is regular, symmetrical. GI: No signs and/or symptoms were reported involving the gastrointestinal system. Abdomen is round non-distended. Derm: Skin is pink, warm \T\ dry. Historical: - Allergies: 00:40 PENICILLINS; ha1 - Home Meds: 00:40 aspirin 81 mg Oral capsule once [Active]; Metoprolol Tartrate Oral [Active]; lisinopril ha1 Oral [Active]; - PMHx: 00:40 Atrial Fib; Hypertension; ha1 - Immunization history:: Adult Immunizations up to date. - Infectious Disease History:: Denies. - Social history:: Smoking status: Patient denies any tobacco usage or history of. Screenin:19 [facility] ED Fall Risk Assessment (Adult) History of falling in the last 3 months, ha1 including since admission No falls in past 3 months (0 pts) Confusion or Disorientation No (0 pts) Intoxicated or Sedated No (0 pts) Impaired Gait Yes (1 pt) Mobility Assist Device Used No (0 pt) Altered Elimination No (0 pt) Score/Fall Risk Level 0 - 2 = Low Risk Oriented to surroundings, Maintained a safe environment, Educated pt \T\ family on fall prevention, incl call for assistance when getting out of bed, Hourly rounding (assess needs \T\ fall precautionary measures) done. Abuse screen: Denies threats or abuse. Denies injuries from another. Nutritional screening: No deficits noted. Tuberculosis screening: No symptoms or risk factors identified. Assessment: 01:20 Reassessment: Patient and/or family updated on plan of care and expected duration. Pain ha1 level reassessed. Patient is alert, oriented x 3, equal unlabored respirations, skin warm/dry/pink. Vital Signs: 00:32 BP 138 / 69; Pulse 66; Resp 18 S; Temp 98.1; Pulse Ox 96% on R/A; Weight 97.52 kg; ha1 Height 5 ft. 6 in. ; 01:20 BP 125 / 78; Pulse 78; Resp 19 S; Pulse Ox 95% on R/A; ha1 00:32 Body Mass Index 34.70 (97.52 kg, 167.64 cm) ha1 ED Course: 00:28 Patient arrived in ED. jj6 00:32 Patient has correct armband on for positive identification. ha1 00:36 Nevaeh Cuevas FNP-C is PHCP. kb 00:36 Luis Horvath MD is Attending Physician. kb 00:40 Triage completed. ha1 01:19 Arm band placed on right wrist. ha1 :19 No provider procedures requiring assistance completed. Patient did not have IV access ha1 during this emergency room visit. 01:20 Provided Education on: medication administration . ha1 Administered Medications: 01:00 Drug: HYDROcodone-acetaminophen PO 5 mg-325 mg 1 tabs PO once Route: PO; ha1 01:19 Follow up: Response: No adverse reaction; Marked relief of symptoms ha1 01:00 Drug: predniSONE PO 40 mg PO once Route: PO; ha1 01:18 Follow up: Response: No adverse reaction; Marked relief of symptoms ha1 Medication: 01:20 VIS not applicable for this client. ha1 Outcome: 00:45 Discharge ordered by MD. castillo 01:19 Discharged to home via wheelchair, with family, ha1 01:19 Condition: stable 01:19 Discharge instructions given to patient, family, Instructed on discharge instructions, follow up and referral plans. medication usage, Demonstrated understanding of instructions, follow-up care, medications, Prescriptions given X 2, 01:21 Patient left the ED. ha1 Signatures: Nevaeh Cuevas, AUDIO VISUAL COLLECTIONS COORDINATOR-C AUDIO VISUAL COLLECTIONS COORDINATOR-CkMaribeth Ramirez jj6 Maia Liriano RN RN ha1 Corrections: (The following items were deleted from the chart) 08:22 01:20 BP 125 / 78; Pulse 28bpm; Resp 19bpm; Spontaneous; Pulse Ox 95% RA; ha1 ha1
--- NOTE | 2024-08-15 00:46 | EDPHYS ---
Physician Documentation [facility] Name: Mary Polo Age: 83 yrs Sex: Female : 1940 Arrival Date: 08/15/2024 Time: 00:25 Bed IW1 Private MD: ED Physician Luis Horvath HPI: 08/15 00:43 This 83 yrs old Female presents to ER via Wheelchair with complaints of Shoulder Pain. kb 00:43 Pt is an 83 year old female who presents for left shoulder pain that started 3 days ago kb and got worse tonight. States she was seen by Dr Robert and had xrays done this morning, but she didn't get the results yet. Denies injury or trauma. States pain starts at left side of neck and radiates to shoulder. Pain aggravated by movement of shoulder. Historical: - Allergies: 00:40 PENICILLINS; ha1 - Home Meds: 00:40 aspirin 81 mg Oral capsule once [Active]; Metoprolol Tartrate Oral [Active]; lisinopril ha1 Oral [Active]; - PMHx: 00:40 Atrial Fib; Hypertension; ha1 - Immunization history:: Adult Immunizations up to date. - Infectious Disease History:: Denies. - Social history:: Smoking status: Patient denies any tobacco usage or history of. ROS: 00:40 Constitutional: As per HPI kb Exam: 00:42 Constitutional: This is a well developed, well nourished patient who is awake, alert, kb and in no acute distress. Head/Face: Normocephalic, atraumatic. ENT: Moist Mucous membranes Cardiovascular: Regular rate Respiratory: Respirations even and unlabored. No increased work of breathing. Talking in full sentences Skin: Warm, dry with normal turgor. Normal color. Neuro: Awake and alert, GCS 15, oriented to person, place, time, and situation. 00:42 Musculoskeletal/extremity: Extremities: grossly normal except: noted in the posterior aspect of left shoulder: decreased ROM, pain, tenderness, ROM: limited active range of motion due to pain, Circulation is intact in all extremities. Sensation intact. Vital Signs: 00:32 BP 138 / 69; Pulse 66; Resp 18 S; Temp 98.1; Pulse Ox 96% on R/A; Weight 97.52 kg; ha1 Height 5 ft. 6 in. ; 01:20 BP 125 / 78; Pulse 78; Resp 19 S; Pulse Ox 95% on R/A; ha1 00:32 Body Mass Index 34.70 (97.52 kg, 167.64 cm) ha1 MDM: 00:36 Medical Screening Exam initiated kb 00:42 Differential diagnosis: tendonitis, fracture, radiculopathy. Data reviewed: vital kb signs, nurses notes. Historians other than the Patient: Spouse/Significant Other: . External Records Reviewed: Outpatient radiology: shoulder xray negative for fracture or dislocation. Counseling: I had a detailed discussion with the patient and/or guardian regarding the historical points, exam findings, and any diagnostic results supporting the discharge/admit diagnosis, radiology results, the need for outpatient follow up, a family practitioner, to return to the emergency department if symptoms worsen or persist or if there are any questions or concerns that arise at home. 08/15 00:47 Order name: Sling; Complete Time: 01:16 kb Administered Medications: 01:00 Drug: HYDROcodone-acetaminophen PO 5 mg-325 mg 1 tabs PO once Route: PO; ha1 01:19 Follow up: Response: No adverse reaction; Marked relief of symptoms ha1 01:00 Drug: predniSONE PO 40 mg PO once Route: PO; ha1 01:18 Follow up: Response: No adverse reaction; Marked relief of symptoms ha1 Disposition: 06:40 Co-signature as Attending Physician, Luis Horvath MD I agree with the assessment sp4 and plan of care. I reviewed the patient's care provided by the Advanced Practice Provider and agree with the diagnosis and treatment plan. Disposition Summary: 08/15/24 00:45 Discharge Ordered Notes: Location: Home kb Condition: Stable kb Diagnosis - Radiculopathy, cervical region kb Followup: kb - With: Emergency Department - When: As needed - Reason: Worsening of condition Followup: kb - With: Private Physician - When: 2 - 3 days - Reason: Recheck today's complaints, Continuance of care, Re-evaluation by your physician Discharge Instructions: - Discharge Summary Sheet kb - Cervical Radiculopathy, [id number] kb Forms: - Medication Reconciliation Form kb - Antibiotic Education kb - Prescription Opioid Use kb - Patient Portal Instructions kb - Leadership Thank You Letter kb Prescriptions: - Prednisone 20 mg Oral Tablet - take 1 tablet ORAL route once daily for 5 days; 5 tablet; Refills: 0, Product kb Selection Permitted - orphenadrine citrate 100 mg Oral Tablet Sustained Release - take 1 tablet ORAL route 2 times per day As needed; 20 tablet; Refills: 0, kb Product Selection Permitted Signatures: Nevaeh Cuevas FNP-C FNP-Ckb Ayala, Heidy, RN RN ha1 Luis Horvath MD MD sp4 Corrections: (The following items were deleted from the chart) 00:44 00:43 Pt is an 83 year old female who presents for left shoulder pain that started 3 kb days ago and got worse tonight. States she was seen by Dr Robert and had xrays done this morning, but she didn't get the results yet. Denies injury or trauma. . kb 00:44 00:43 Pt is an 83 year old female who presents for left shoulder pain that started 3 kb days ago and got worse tonight. States she was seen by Dr Robert and had xrays done this morning, but she didn't get the results yet. Denies injury or trauma. States pain starts at left side of neck and radiates to shoulder. kb
[2024-08-15] MEDS ORDERED: HYDROCODONE/APAP 5/325 MG TAB ONE (00:58)
[2024-08-15] MEDS ORDERED: predniSONE 20 MG TAB ONE (00:59)
[2024-08-15 01:55] VITALS: TEMP 98.1
[2024-08-15 01:56] VITALS: BP 125/78; O2SAT 95
== END 2024-08-15 01:21 | disposition home or self-care (01) ==
LOC: ER 00:25
DX: M54.12 Radiculopathy, cervical region (principal)
CPT/HCPCS: J7512